=== PATIENT | male | born 1930 | race Caucasian/White ===

== ENCOUNTER → 2017-06-13 | Outpatient (CLI) | payer OTHER | LOC: ULTRA 11:16 | DX: M79.604 Pain in right leg (principal); M79.89 Other specified soft tissue disorders ==

== ENCOUNTER 2019-07-25 10:03 | Emergency (ER) | payer OTHER ==
[~2019-07-25] VITALS: Ht 170.2 cm; Wt 86.2 kg
[2019-07-25] MEDS ORDERED: SIMVASTATIN40 MG PO (10:13)
[2019-07-25] MEDS ORDERED: LISINOPRIL20 MG PO (10:13)
[2019-07-25] MEDS ORDERED: CARBIDOPA-LEVO1 EAC9 PO (10:13)
[2019-07-25] MEDS ORDERED: TAMSULOSIN HCL0.4 MG PO (10:13)
[2019-07-25] MEDS ORDERED: PROSCAR 5MG TABL5 M1 PO (10:20)
[2019-07-25 12:09] LABS: HEMATOCRIT 42.9 % (42.0-52.0); HEMOGLOBIN 14.4 gm/dL (14.0-18.0); MCH 31.3 pg (26.0-34.0); MCHC 33.5 g/dL (28.0-37.0); MCV 93.3 fL (80.0-100.0); RBC 4.6 mil/uL (4.50-6.00); RDW 14.3 % (10.5-14.5); WBC 8.6 thou/uL (4.0-11.0)
[2019-07-25 12:23] LABS: CALCIUM 9.2 mg/dL (8.5-10.1); CREATININE 1.2 mg/dL (0.7-1.3); POTASSIUM 4.3 mmol/L (3.5-5.1)
[2019-07-25 12:58] VITALS: BP 121/60
[2019-07-25] MEDS ORDERED: NORCO 5-325 TA1 EAC1 PO (13:07)
[2019-07-25] MEDS ORDERED: LIDOCAINE PAIN1 EACH TRANSDERM (13:07)
== END 2019-07-25 13:00 | disposition home or self-care (01) ==
LOC: ER 10:03
PROVIDERS: Physician Assistant
DX: M25.562 Pain in left knee (principal); M25.561 Pain in right knee; M25.552 Pain in left hip; M25.551 Pain in right hip; G20 Parkinson's disease; W00.9XXA Unspecified fall due to ice and snow, initial encounter; Y93.89 Activity, other specified; Y92.89 Other specified places as the place of occurrence of the external cause; Y99.8 Other external cause status